=== PATIENT | female | born 1975 | race Caucasian/White ===

== ENCOUNTER 2020-08-09 16:29 | Emergency (ER) | payer OTHER ==
--- NOTE | 2020-08-09 17:24 | EDM.PDOC ---
ED HPI GENERAL MEDICAL PROBLEM - General Chief Complaint: Lower Extremity Injury/Pain Stated Complaint: RIGHT FOOT INJURY Time Seen by Provider: 08/09/20 16:30 - History of Present Illness INITIAL COMMENTS - FREE TEXT/NARRATIVE: 44-year-old female without relevant past medical history presenting with right foot pain after an accident work last night. At approximately 930 the patient was unloading a pallet of water from a truck when the momentum carried the palate towards her and pinned her right foot it was pinned briefly before being removed my colleague patient has had significant pain with ambulation since that time no fall no pain in the knee of the back of the hip no other complaints or medical problems. L pain Pain Score (Numeric/FACES): 7 R foot pain Pain Score (Numeric/FACES): 7 - Related Data Allergies Allergy/AdvReac Type Severity Reaction Status Date / Time No Known Allergies Allergy Verified 08/09/20 17:34 Home Meds: Home Meds Multivitamin 1 tab PO DAILY 08/09/20 [History] Past Medical History Other IMAGING AIDE History: ruptured ovarian cyst - Infectious Disease History Infectious Disease History: Reports: Chicken Pox, Measles Social & Family History - Family History Family Medical History: No Pertinent Family History - Caffeine Use Caffeine Use: Reports: Coffee, Soda - Recreational Drug Use Recreational Drug Use: No Review of Systems - Review of Systems Review Of Systems: See Below Constitutional: Reports: No Symptoms Musculoskeletal: Reports: Other (Per HPI) Skin: Reports: No Symptoms Neurological: Reports: No Symptoms ED EXAM, GENERAL - Physical Exam Exam: See Below Free Text/Narrative:: General Appearance: No acute distress, appears comfortable Skin: No rash HEENT: Normocephalic/atraumatic, sclera anicteric, mucous membranes moist Musculoskeletal: 2+ right DP pulse ecchymosis around the midfoot in between the first and second and third and fourth digits diffuse bony tenderness that is most pronounced around the midfoot and the arch and the lateral malleolus the extremity is neurovascularly intact Neurologic: Awake, alert, no obvious deficits, moving all extremities Psychiatric: Appropriate, cooperative Course - Vital Signs Last Recorded V/S: Last Vital Signs Temp 96.8 F L 08/09/20 17:10 Pulse 83 08/09/20 17:10 Resp 18 08/09/20 17:10 BP 129/69 08/09/20 17:10 Pulse Ox 96 01/01/21 17:10 Departure - Departure Time of Disposition: 18:06 Disposition: Home, Self-Care 01 Condition: Good Clinical Impression: Crush injury of foot - Discharge Information *PRESCRIPTION DRUG MONITORING PROGRAM REVIEWED*: Not Applicable *COPY OF PRESCRIPTION DRUG MONITORING REPORT IN PATIENT TONY: Not Applicable Instructions: Crush Injury of the Foot, RICE Therapy for Routine Care of Injuries, [id number] Forms: ED Department Discharge Additional Instructions: I encourage you to keep the foot elevated and follow the rest ice compression elevation instructions provided. You should stay off the foot is much as you can until at least August 12. If you are not feeling completely normal self at that time I encourage you to follow-up with the occupational health clinic. [place] [place] [address] The following information is given to patients seen in the emergency department who are being discharged to home. This information is to outline your options for follow-up care. We provide all patients seen in our emergency department with a follow-up referral. The need for follow-up, as well as the timing and circumstances, are variable depending upon the specifics of your emergency department visit. If you don't have a primary care physician on staff, we will provide you with a referral. We always advise you to contact your personal physician following an emergency department visit to inform them of the circumstance of the visit and for follow-up with them and/or the need for any referrals to a consulting specialist. The emergency department will also refer you to a specialist when appropriate. This referral assures that you have the opportunity for follow-up care with a specialist. All of these measure are taken in an effort to provide you with optimal care, which includes your follow-up. Under all circumstances we always encourage you to contact your private physician who remains a resource for coordinating your care. When calling for follow-up care, please make the office aware that this follow-up is from your recent emergency room visit. If for any reason you are refused follow-up, please contact the [facility] Emergency Department at and asked to speak to the emergency department charge nurse. Sepsis Event Note (ED) - Evaluation Sepsis Screening Result: No Definite Risk - Focused Exam Vital Signs: Vital Signs Temp Pulse Resp BP Pulse Ox 08/09/20 17:10 96.8 F L 83 18 129/69 96 - Assessment/Plan Assessment:: 44-year-old female with right foot pain after an accident at work last night foot contusion versus fracture given the focal bony tenderness over the lateral malleolus ankle x-ray ordered in addition to the foot films. No sign of other injury no proximal fibula tenderness 1805: Patient's imaging is negative. We discussed rest ice and elevation work status paperwork completed to reflect unable to return to work at this time with anticipated return to work date of August 12. Patient provided with occupational health follow-up.
--- NOTE | 2020-08-09 17:56 | CR ---
Indication: Injury and pain Technique: Right ankle 2 views. Comparison: None Findings: Bones: Alignment is normal. No fractures or bone lesions. Joint spaces: Unremarkable. Soft tissues: Unremarkable. Impression: No sign of acute injury. Dictated by Gaurang Baez MD @ Aug 09 2020 5:53PM Signed by Dr. Gaurang Baez @ Aug 09 2020 5:54PM
--- NOTE | 2020-08-09 17:58 | CR ---
Indication: Injury and pain Technique: Right foot 2 views Comparison: None Findings: Bones: Alignment is normal. No fractures or bone lesions. Joint spaces: Unremarkable. Soft tissues: Unremarkable. Impression: No sign of acute injury. Dictated by Gaurang Baze MD @ Aug 09 2020 5:54PM Signed by Dr. Gaurang Baez @ Aug 09 2020 5:55PM
== END 2020-08-09 18:18 | disposition home or self-care (01) ==
LOC: MW.ED 16:29
DX: S97.81XA Crushing injury of right foot, initial encounter (principal); W20.8XXA Other cause of strike by thrown, projected or falling object, initial encounter; Y99.0 Civilian activity done for income or pay
CPT/HCPCS: 73600-26-RT; 73600-RT; 73620-26-RT; 73620-RT; 99283